=== PATIENT | female | born 1945 ===

== ENCOUNTER 2016-06-19 12:20 | Observation (INO) | payer MEDICARE, SELFPAY ==
--- NOTE | 2016-06-19 12:54 | ED PDOC ---
HPI: General Adult Time Seen by Provider: 06/19/16 12:49 Chief Complaint (Nursing): Medical Clearance Chief Complaint (Provider): EKG changes History Per: Patient History/Exam Limitations: no limitations Additional Complaint(s): 71yo female comes to the ED from clinic due to changes noted on EKG when compared to previous EKGs. Patient denies chest pain or pressure but states she feels "gas" in her chest. Past Medical History Reviewed: Historical Data, Nursing Documentation, Vital Signs Vital Signs: Last Vital Signs Temp 95.2 F L 06/19/16 12:37 Pulse 56 L 06/19/16 12:37 Resp 18 06/19/16 12:37 BP 191/73 H 06/19/16 12:37 Pulse Ox 99 06/19/16 13:12 - Medical History PMH: Diabetes, Gastritis, HTN - Surgical History Surgical History: No Surg Hx - Family History Family History: States: Diabetes, Hypertension - Living Arrangements Living Arrangements: With Family - Social History Drugs: Denies - Home Medications Home Medications: Ambulatory Orders Medication Instructions Recorded Albuterol HFA [Ventolin HFA 90 1 puff IH ASDIR #1 unit 04/20/16 mcg/actuation (8 g)] Azithromycin [Zithromax] 250 mg PO DAILY #6 tab 04/20/16 Benzonatate 200 mg PO TID PRN #20 capsule 04/20/16 Glipizide [Glipizide Xl] 10 mg PO DAILY 04/20/16 Losartan Potassium [Cozaar] 100 mg PO DAILY 04/20/16 Metformin ER [Glucophage XR] 1,000 mg PO BID 04/20/16 Zolpidem Tartrate [Ambien] 10 mg PO DAILY 04/20/16 - Allergies Allergies/Adverse Reactions: Allergies Allergy/AdvReac Type Severity Reaction Status Date / Time No Known Allergies Allergy Verified 04/20/16 15:12 Review of Systems ROS Statement: Except As Marked, All Systems Reviewed And Found Negative Cardiovascular: Negative for: Chest Pain Respiratory: Negative for: Shortness of Breath Physical Exam - Reviewed Nursing Documentation Reviewed: Yes Vital Signs Reviewed: Yes - Physical Exam Appears: Positive for: Well, Non-toxic, No Acute Distress Head Exam: Positive for: ATRAUMATIC, NORMAL INSPECTION, NORMOCEPHALIC Skin: Positive for: Warm, Dry Eye Exam: Positive for: EOMI, PERRL Cardiovascular/Chest: Positive for: Regular Rate, Rhythm Respiratory: Positive for: Normal Breath Sounds. Negative for: Rales, Rhonchi, Wheezing Extremity: Positive for: Normal ROM Neurologic/Psych: Positive for: Alert, Oriented (x3) - Laboratory Results Result Diagrams: 06/19/16 13:11 06/19/16 13:11 - ECG O2 Sat by Pulse Oximetry: 99 (RA) Pulse Ox Interpretation: Normal Medical Decision Making Medical Decision Makin EKG, labs ordered Disposition - Clinical Impression Clinical Impression: Chest pain - Patient ED Disposition Is Patient to be Admitted: Yes - Disposition Disposition Time: 14:18 Condition: FAIR - Pt Status Changed To: Hospital Disposition Of: Observation - POA Present On Arrival: None Additional Comments - Additional Comments Additional Comments: Scribe Attestation: Documented by Trey Sanchez acting as a scribe for Preston Schmidt MD. Provider Scribe Attestation: All medical record entries made by the Scribe were at my direction and personally dictated by me. I have reviewed the chart and agree that the record accurately reflects my personal performance of the history, physical exam, medical decision making, and the department course for this patient. I have also personally directed, reviewed, and agree with the discharge instructions and disposition.
[2016-06-19 13:37] LABS: BASO # 0.1 K/uL (0.0-0.2); BASO % 1.1 % (0.0-2.0); EOS # 0.3 K/uL (0.0-0.7); EOS % 5.4 % (0.0-4.0); HEMATOCRIT 34.1 % (34.0-47.0); LYMPH # 1.6 K/uL (1.0-4.3); LYMPH % 32.8 % (20.0-40.0); MEAN CELL VOLUME 86.2 fl (81.0-99.0); MEAN CORPUSCULAR HEMOGLOBIN 28.2 pg (27.0-31.0); MEAN CORPUSCULAR HGB CONC 32.7 g/dL (33.0-37.0); MEAN PLATELET VOLUME 8.3 fl (7.2-11.7); MONO # 0.4 K/uL (0.0-0.8); MONO % 7.8 % (0.0-10.0); NEUT # 2.6 K/uL (1.8-7.0); NEUT % 52.9 % (50.0-75.0); NRBC % 0.1 % (0.0-0.0); RED CELL DISTRIBUTION WIDTH 15.4 % (11.5-14.5); WHITE BLOOD COUNT 4.9 K/uL (4.8-10.8)
[2016-06-19 13:51] LABS: ALB/GLOB RATIO 1.2 (1.0-2.1); ALKALINE PHOSPHATASE 60 U/L (38-126); ALT/SGPT 19 U/L (9-52); AST/SGOT 21 U/L (14-36); BILIRUBIN,TOTAL 0.5 mg/dl (0.2-1.3); BLOOD UREA NITROGEN 27 mg/dl (7-17); CARBON DIOXIDE 23 mmol/L (22-30); CHLORIDE 107 mmol/L (98-107); GFR AFRICAN-AMERICAN > 60; GLUCOSE,RANDOM 90 mg/dL (65-105); SODIUM 147 mmol/l (132-148)
[2016-06-19 14:02] LABS: POTASSIUM 4.5 MMOL/L (3.6-5.0)
--- NOTE | 2016-06-19 15:27 | CP.PCM.HP ---
History of Present Illness - History of Present Illness History of Present Illness: 71 y/o female with a PMHx remarkable for NIDDM2, dyspepsia, HTN presents to ED today after being sent over from the [facility]. She was originally being seen in the clinic for optimization for cataract surgery when she complained of gas like epigastric pain. An EKG was performed in the clinic which showed peaked T- waves. She currently reports feeling alright with a minor epigastric pain and hungry. She has no other complaints. Denies headaches, changes in vision, diaphoresis, CP/SOB/ROQUE/palpitations, left arm/jaw, N/V/D/C, urinary symptoms, numbness/tingling. ROS: 12 points reviewed, found to be negative PMD: Dr. Lobo PMHx: NIDDM2, HTN, Sleep difficulty Meds: Metformin 1000 BID, Losartan 100 QD, Charmco-3 BID, Ferrous Sulfate 325mg, Aspirin 81mg, Ambien 10mg, Trazadone 50mg. ALL: NKDA PsurgHx: BTL, Benign Breast Cyst excision, Ear Surgery FHx: negative for CAD, [place], Stroke SocialHx: denies tobacco/drug use, reports occasional wine and whiskey consumption ED Course: Vitals on presentation: Temp: 95.2 BP: 191/73, HR: 56, RR: 18, O2: 99% on RA CBC: wnl CMP: BUN 27 Troponin I: 1st troponin negative EKG: sinus bradycardia, peaked t-waves Admitted to [facility] for observation Present on Admission - Present on Admission Any Indicators Present on Admission: No Review of Systems - Review of Systems All systems: reviewed and no additional remarkable complaints except Past Patient History - Past Medical History & Family History Past Medical History?: Yes - Past Social History Smoking Status: Never Smoked Alcohol: Occasional Drugs: Denies Home Situation {Lives}: With Family Domestic Violence: Negative - CARDIAC Hx Hypertension: Yes - ENDOCRINE/METABOLIC Hx Diabetes Mellitus Type 1: Yes - GASTROINTESTINAL Hx Gastritis: Yes - PSYCHIATRIC Hx Substance Use: No - SURGICAL HISTORY Hx Tubal Ligation: Yes Other/Comment: Left ear surgery. Bilateral breast cyst removal - ANESTHESIA Hx Anesthesia: Yes Hx Anesthesia Reactions: No Hx Malignant Hyperthermia: No Meds Allergies/Adverse Reactions: Allergies Allergy/AdvReac Type Severity Reaction Status Date / Time No Known Allergies Allergy Verified 04/20/16 15:12 Physical Exam - Constitutional Appears: Well, No Acute Distress - Head Exam Head Exam: ATRAUMATIC, NORMOCEPHALIC - Eye Exam Eye Exam: EOMI. absent: Conjunctival injection, Scleral icterus Pupil Exam: PERRL - ENT Exam ENT Exam: Mucous Membranes Moist, Normal Exam - Neck Exam Neck exam: Positive for: Normal Inspection - Respiratory Exam Respiratory Exam: Clear to Auscultation Bilateral, NORMAL BREATHING PATTERN. absent: Rales, Rhonchi, Wheezes - Cardiovascular Exam Cardiovascular Exam: REGULAR RHYTHM, RRR, +S1, +S2. absent: Clicks, Gallop, JVD , Rubs, Systolic Murmur - GI/Abdominal Exam GI & Abdominal Exam: Normal Bowel Sounds, Soft, Tenderness. absent: Distended, Firm, Guarding, Rebound Additional comments: minimal tenderness to palpation in the epigastric region. - Extremities Exam Extremities exam: Positive for: full ROM, normal inspection, pedal pulses present. Negative for: calf tenderness, pedal edema - Back Exam Back exam: NORMAL INSPECTION - Neurological Exam Neurological exam: Alert, CN II-XII Intact, Normal Gait, Oriented x3, Reflexes Normal - Psychiatric Exam Psychiatric exam: Normal Affect, Normal Mood - Skin Skin Exam: Dry, Intact, Normal Color, Warm Results - Vital Signs Recent Vital Signs: Last Vital Signs Temp 95.2 F L 06/19/16 12:37 Pulse 56 L 06/19/16 12:37 Resp 18 06/19/16 12:37 BP 191/73 H 06/19/16 12:37 Pulse Ox 99 06/19/16 14:18 - Labs Result Diagrams: 06/19/16 13:11 06/19/16 13:11 Assessment & Plan (1) Chest pain with low risk of acute coronary syndrome Assessment and Plan: -trend Troponins q8 hours -repeat 12 lead EKG in the morning -follow up BMP -resume home anti-hypertension medications -vitals Q4 -Heart healthy diet -admitted to Telemetry for Observation Status: Acute Priority: Medium (2) Non-insulin treated type 2 diabetes mellitus Assessment and Plan: -well controlled -HbA1C: 6.8% in November of 2015 -c/w home medication (Metformin 1000 BID) Status: Chronic Priority: Low (3) Essential (primary) hypertension Assessment and Plan: -well controlled -c/w home medications (Losartan 100mg, Aspirin 81mg) Status: Chronic Priority: Low (4) Dyspepsia Assessment and Plan: -Pepcid 20mg QD Status: Chronic Priority: Low (5) DVT prophylaxis Assessment and Plan: -Ambulation Status: Chronic Priority: Low
[2016-06-19] MEDS ORDERED: Dextrose 50% SYRINGE Inj (50 ml) IV PRN (15:47)
[2016-06-19] MEDS ORDERED: Glucagon Recombinant 1 mg Inj IM PRN (15:47)
[2016-06-19 18:52] VITALS: BMI 25.9
[2016-06-19] MEDS: Simethicone 80 mg Chewtab PO SCH ×2 (19:36→21:16)
[2016-06-20 00:18] VITALS: RESP 18
[2016-06-20 08:02] VITALS: TEMP 98
[2016-06-20] MEDS: Simethicone 80 mg Chewtab PO SCH ×2 (08:20→13:06)
[2016-06-20 12:30] VITALS: BP 125/56; PULSE 58; O2SAT 100
--- NOTE | 2016-06-20 12:38 | CP.PCM.DIS ---
Provider - Provider Date of Admission: 06/19/16 14:17 Attending physician: Katheryn Melchor MD Time Spent in preparation of Discharge (in minutes): 35 Diagnosis - Discharge Diagnosis (1) Chest pain with low risk of acute coronary syndrome Status: Acute Priority: Medium (2) Non-insulin treated type 2 diabetes mellitus Status: Chronic Priority: Low (3) Essential (primary) hypertension Status: Chronic Priority: Low (4) Dyspepsia Status: Chronic Priority: Low (5) DVT prophylaxis Status: Chronic Priority: Low Hospital Course - Lab Results Lab Results: Most Recent Lab Values WBC 4.9 K/uL (4.8-10.8) 06/19/16 13:11 RBC 3.96 Mil/uL (3.80-5.20) 06/19/16 13:11 Hgb 11.2 g/dL (12.0-16.0) L 06/19/16 13:11 Hct 34.1 % (34.0-47.0) 06/19/16 13:11 MCV 86.2 fl (81.0-99.0) 06/19/16 13:11 MCH 28.2 pg (27.0-31.0) 06/19/16 13:11 MCHC 32.7 g/dL (33.0-37.0) L 06/19/16 13:11 RDW 15.4 % (11.5-14.5) H 06/19/16 13:11 Plt Count 248 K/uL (130-400) 06/19/16 13:11 MPV 8.3 fl (7.2-11.7) 06/19/16 13:11 Neut % (Auto) 52.9 % (50.0-75.0) 06/19/16 13:11 Lymph % (Auto) 32.8 % (20.0-40.0) 06/19/16 13:11 [place] % (Auto) 7.8 % (0.0-10.0) 06/19/16 13:11 Eos % (Auto) 5.4 % (0.0-4.0) H 06/19/16 13:11 Baso % (Auto) 1.1 % (0.0-2.0) 06/19/16 13:11 Neut # 2.6 K/uL (1.8-7.0) 06/19/16 13:11 Lymph # 1.6 K/uL (1.0-4.3) 06/19/16 13:11 [place] # 0.4 K/uL (0.0-0.8) 06/19/16 13:11 Eos # 0.3 K/uL (0.0-0.7) 06/19/16 13:11 Baso # 0.1 K/uL (0.0-0.2) 06/19/16 13:11 Sodium 147 mmol/l (132-148) 06/19/16 13:11 Potassium 4.5 MMOL/L (3.6-5.0) 06/19/16 13:11 Chloride 107 mmol/L (98-107) 06/19/16 13:11 Carbon Dioxide 23 mmol/L (22-30) 06/19/16 13:11 Anion Gap 22 (10-20) H 06/19/16 13:11 BUN 27 mg/dl (7-17) H 06/19/16 13:11 Creatinine 0.9 mg/dL (0.7-1.2) 06/19/16 13:11 Est GFR ( Amer) > 60 06/19/16 13:11 Est GFR (Non-Af Amer) > 60 06/19/16 13:11 POC Glucose (mg/dL) 193 mg/dL (65-110) H 06/20/16 11:07 Random Glucose 90 mg/dL (65-105) 06/19/16 13:11 Calcium 10.0 mg/dL (8.4-10.2) 06/19/16 13:11 Total Bilirubin 0.5 mg/dl (0.2-1.3) 06/19/16 13:11 AST 21 U/L (14-36) 06/19/16 13:11 ALT 19 U/L (9-52) 06/19/16 13:11 Alkaline Phosphatase 60 U/L (38-126) 06/19/16 13:11 Troponin I < 0.0120 ng/mL (0.00-0.120) 06/20/16 05:25 Total Protein 8.0 G/DL (6.3-8.2) 06/19/16 13:11 Albumin 4.3 g/dL (3.5-5.0) 06/19/16 13:11 Globulin 3.7 gm/dL (2.2-3.9) 06/19/16 13:11 Albumin/Globulin Ratio 1.2 (1.0-2.1) 06/19/16 13:11 - Hospital Course Hospital Course: 71 y/o female with a PMHx remarkable for NIDDM2, dyspepsia, HTN presents to ED today after being sent over from the [facility]. She was originally being seen in the clinic for optimization for cataract surgery when she complained of gas like epigastric pain. An EKG was performed in the clinic which showed peaked T- waves. She presented to the ED where she was admitted for observation. Follow up EKG and Troponins were ordered. All tests were negative. After an uneventful hospital stay, the patient was discharged in stable condition with orders to follow up with her PMD later this week. Discharge Exam - Head Exam Head Exam: ATRAUMATIC, NORMOCEPHALIC - Eye Exam Eye Exam: EOMI. absent: Conjunctival injection, Scleral icterus Pupil Exam: PERRL - Respiratory Exam Respiratory Exam: Clear to PA & Lateral, NORMAL BREATHING PATTERN, UNREMARKABLE. absent: Accessory Muscle Use, Rales, Wheezes, Respiratory Distress - Cardiovascular Exam Cardiovascular Exam: Bradycardia, REGULAR RHYTHM, RRR, +S1, +S2. absent: Tachycardia, Clicks, Diastolic murmur, Gallop, JVD, Rubs, Systolic Murmur - GI/Abdominal Exam GI & Abdominal Exam: Normal Bowel Sounds, Soft, Unremarkable. absent: Diminished Bowel Sounds, Distended, Firm, Guarding, Hernia, Tenderness - Extremities Exam Extremities exam: full ROM, normal capillary refill, normal inspection, pedal pulses present - Neurological Exam Neurological exam: Alert, CN II-XII Intact, Normal Gait, Oriented x3 - Psychiatric Exam Psychiatric exam: Normal Affect, Normal Mood - Skin Skin Exam: Dry, Intact, Normal Color, Warm Discharge Plan - Follow Up Plan Condition: STABLE Disposition: HOME/ ROUTINE Instructions: Chest Pain (DC), Bradycardia (DC) Additional Instructions: follow up with your PMD in 2-3 days any worsening chest pain, palpitations, associated with diaphoresis, nausea, vomiting report back to the ER.
--- NOTE | 2016-06-21 11:49 | CARD ---
APPROVED REPORT EKG Measurement Heart [id number] <Conclusion> Sinus bradycardia Otherwise normal ECG
== END 2016-06-20 14:10 | disposition home or self-care (01) ==
LOC: H.ER 12:20 → H.ERHOLD 14:17 → H.TEL 18:25
PROVIDERS: ADMIT Family Medicine Geriatric Medicine; ATTEND Family Medicine Geriatric Medicine
DX: R07.89 Other chest pain (principal); R10.13 Epigastric pain; E11.9 Type 2 diabetes mellitus without complications; I10 Essential (primary) hypertension; Z79.4 Long term (current) use of insulin
CPT/HCPCS: 36415; 80053; 82948; 84484; 85025; 93005; 99285; G0378

== ENCOUNTER 2016-09-27 10:00 | Emergency (ER) | payer MEDICARE, OTHER ==
[2016-09-27 10:00] VITALS: BMI 25.9
--- NOTE | 2016-09-27 11:26 | ED PDOC ---
HPI: Abdomen Time Seen by Provider: 09/27/16 11:26 Chief Complaint (Nursing): GI Problem Chief Complaint (Provider): abdominal pain History Per: Patient Additional Complaint(s): 71-year-old female presents to emergency department with epigastric abdominal pain associated with vomiting and acid reflux symptoms 1 week. She was seen last week by primary doctor and was taken off omeprazole and was advised to take Zantac instead. She was then referred to planting supervisor who told her to take Pepcid instead but pepcid is not helping with reflux symptoms. She is currently awaiting insurance approval for an endoscopy and presents today with persistent vomiting and pain. She denies ssociated fever or chills, no chest pain, shortness of breath or dyspnea on exertion. Patient rates current abdominal pain as a 6 out of 10. Past Medical History Reviewed: Historical Data, Nursing Documentation, Vital Signs Vital Signs: Last Vital Signs Temp 97.8 F 09/27/16 15:50 Pulse 53 L 09/27/16 15:50 Resp 18 09/27/16 15:50 BP 172/74 H 09/27/16 15:50 Pulse Ox 99 09/27/16 15:50 - Medical History PMH: Diabetes, Gastritis, HTN - Surgical History Other surgeries: left ear surgery, cyst removal from right breast - Family History Family History: States: Diabetes, Hypertension - Living Arrangements Living Arrangements: With Family - Social History Current smoker - smoking cessation education provided: No Alcohol: None Drugs: Denies - Home Medications Home Medications: Ambulatory Orders Medication Instructions Recorded Losartan Potassium [Cozaar] 100 mg PO DAILY 04/20/16 Zolpidem Tartrate [Ambien] 10 mg PO HS 04/20/16 Aspirin [Ecotrin] 81 mg PO DAILY 06/19/16 Ferrous Sulfate [Ferosul] 325 mg PO DAILY 06/19/16 MetFORMIN [glucoPHAGE] 1,000 mg PO BID 06/19/16 [place]-3 Fatty Acids [[place]-3] 1 gm PO BID 06/19/16 traZODone [Desyrel] 50 mg PO HS 06/19/16 Ondansetron [Zofran Odt] 4 mg PO ASDIR PRN #10 odt 09/27/16 Pantoprazole [Protonix] 40 mg PO DAILY #30 tab 09/27/16 - Allergies Allergies/Adverse Reactions: Allergies Allergy/AdvReac Type Severity Reaction Status Date / Time No Known Allergies Allergy Verified 04/20/16 15:12 Review of Systems ROS Statement: Except As Marked, All Systems Reviewed And Found Negative Constitutional: Negative for: Fever Cardiovascular: Negative for: Chest Pain Respiratory: Negative for: Cough Gastrointestinal: Positive for: Nausea, Vomiting, Abdominal Pain. Negative for : Diarrhea, Constipation, Melena, Hematochezia, Hematemesis, Rectal Pain Physical Exam - Reviewed Nursing Documentation Reviewed: Yes Vital Signs Reviewed: Yes - Physical Exam Appears: Positive for: Well, Non-toxic, No Acute Distress Skin: Negative for: Rash Eye Exam: Positive for: Normal appearance, EOMI, PERRL Cardiovascular/Chest: Positive for: Regular Rate, Rhythm Respiratory: Positive for: Normal Breath Sounds Gastrointestinal/Abdominal: Positive for: Bowel Sounds (normoactive in all 4 quadrants), Soft, Tenderness (epigastric region). Negative for: Distended, Guarding, Rebound, Hernia Back: Negative for: L CVA Tenderness, R CVA Tenderness Extremity: Positive for: Normal ROM. Negative for: Pedal Edema Neurologic/Psych: Positive for: Alert, Oriented - Laboratory Results Result Diagrams: 09/27/16 12:58 09/27/16 12:58 - ECG Interpretation Of ECG: Sinus bradycardia 53 bpm, no acute finding, reviewed by PA and ED attending. O2 Sat by Pulse Oximetry: 98 Pulse Ox Interpretation: Normal - Other Rad Abd US X-Ray: Read By Radiologist X-Ray Interpretation: see below Bedside chest X-Ray: Interpreted by Me, Viewed By Me X-Ray Interpretation: no acute finding Medical Decision Making Medical Decision Makin71 year old with abdominal pain Plan: CBC CMP Lipase UA EKG bedside chest Abd US IVF IV zofran PO maalox US: LIVER: Measures 13.5 cm. Normal echogenicity of the liver parenchyma. No mass. No intrahepatic bile duct dilatation. GALLBLADDER: Nearly completely contracted with wall difficult to evaluate. Interval mural thickening is now likely present and acalculous cholecystitis is in question. No pericholecystic fluid collection however or cholelithiasis. COMMON BILE DUCT: Measures 4.7 mm. No stones. No dilatation. PANCREAS: The body of pancreas appears unremarkable the remainder obscured by overlying bowel gas. RIGHT KIDNEY: Measures 8.9cm. Normal echogenicity. No calculus, mass, or hydronephrosis. LEFT KIDNEY: easures 7.6cm. Normal echogenicity. No calculus, mass, or hydronephrosis. SPLEEN: Normal in size and contour. No mass. AORTA: No aneurysmal dilatation. IVC: Unremarkable. OTHER FINDINGS: None. IMPRESSION: Gallbladder is nearly completely contracted however its wall appears greater in thickness thickness in the interval than would be expected simply on the basis of contraction an acalculous cholecystitis is questioned. Further clinical correlation is advised. No biliary tree dilatation is grossly evident at this time. Portions of the pancreas appreciated with remainder the examination unremarkable. Patient feels better. Upon repeat examination, abdominal exam is benign. Patient was able to tolerate juiceand food tray without further emesis. PMD is Dr. Rodriguez from [place]. Case was discussed with Memo Santoyo who states to have patient follow up in office tomorrow. Patient was given rx protonix and zofran and she was also given copy of official US report. She was advised take report with her to PMD appointment in AM. Disposition - Clinical Impression Clinical Impression: Gastritis, Abdominal pain - Patient ED Disposition Is Patient to be Admitted: No Counseled Patient/Family Regarding: Studies Performed, Diagnosis, Need For Followup, Rx Given - Disposition Referrals: Prem Rodriguez MD [Family Provider] - Disposition: Routine/Home Disposition Time: 17:03 Condition: IMPROVED Additional Instructions: Take rx meds as directed. Follow dietary instructions. Follow up tomorrow with primary care doctor office. Prescriptions: Ondansetron [Zofran Odt] 4 mg PO ASDIR PRN #10 odt PRN Reason: Nausea/Vomiting Pantoprazole [Protonix] 40 mg PO DAILY #30 tab Instructions: Gastritis (ED), Diet for Ulcers and Gastritis (ED) Forms: Trov (Tamazight), Trov (Portuguese) Print Language: MONGOLIAN Results - Lab Results Lab Results: 09/27/16 09/27/16 12:58 12:58 WBC 5.0 RBC 4.03 Hgb 11.1 L Hct 34.7 MCV 86.2 MCH 27.6 MCHC 32.0 L RDW 14.4 Plt Count 233 MPV 8.3 Neut % (Auto) 64.2 Lymph % (Auto) 25.0 [place] % (Auto) 6.9 Eos % (Auto) 3.2 Baso % (Auto) 0.7 Neut # 3.2 Lymph # 1.2 [place] # 0.3 Eos # 0.2 Baso # 0.0 Sodium 140 Potassium 4.8 Chloride 108 H Carbon Dioxide 21 L Anion Gap 16 BUN 27 H Creatinine 1.0 Est GFR ( Amer) > 60 Est GFR (Non-Af Amer) 55 Random Glucose 99 Calcium 9.9 Total Bilirubin 0.5 AST 28 ALT 20 Alkaline Phosphatase 48 Total Protein 7.9 Albumin 4.4 Globulin 3.4 Albumin/Globulin Ratio 1.3 Lipase 81
[2016-09-27] MEDS ORDERED: Pantoprazole 40 mg EC Tab PO STA (11:38)
[2016-09-27] MEDS ORDERED: Sodium Chloride 0.9% 1,000 ML IV STA (11:39)
--- NOTE | 2016-09-27 12:13 | RAD ---
HISTORY: clearance COMPARISON: Comparison chest 04/20/2016 FINDINGS: LUNGS: No active pulmonary disease. PLEURA: No significant pleural effusion identified, no pneumothorax apparent. CARDIOVASCULAR: Normal. OSSEOUS STRUCTURES: Mild multilevel degenerative changes both shoulder girdles. . There is also mild dextroscoliosis centered in the lower thoracic region VISUALIZED UPPER ABDOMEN: Normal. OTHER FINDINGS: None. IMPRESSION: No acute infiltrates.
[2016-09-27] MEDS ORDERED: Pantoprazole 40 mg EC Tab PO ONE (12:15)
[2016-09-27 13:49] LABS: CHLORIDE 108 mmol/L (98-107); POTASSIUM 4.8 MMOL/L (3.6-5.0); SODIUM 140 mmol/l (132-148)
[2016-09-27 13:51] LABS: BILIRUBIN,TOTAL 0.5 mg/dl (0.2-1.3); CARBON DIOXIDE 21 mmol/L (22-30); GFR AFRICAN-AMERICAN > 60
[2016-09-27 13:52] LABS: ALB/GLOB RATIO 1.3 (1.0-2.1); ALKALINE PHOSPHATASE 48 U/L (38-126); ALT/SGPT 20 U/L (9-52); AST/SGOT 28 U/L (14-36); BLOOD UREA NITROGEN 27 mg/dl (7-17); CALCIUM 9.9 mg/dL (8.4-10.2); GLUCOSE,RANDOM 99 mg/dL (65-105); LIPASE 81 U/L (23-300); TOTAL PROTEIN 7.9 G/DL (6.3-8.2)
[2016-09-27 14:38] LABS: BASO % 0.7 % (0.0-2.0); EOS # 0.2 K/uL (0.0-0.7); EOS % 3.2 % (0.0-4.0); HEMATOCRIT 34.7 % (34.0-47.0); LYMPH # 1.2 K/uL (1.0-4.3); MEAN CELL VOLUME 86.2 fl (81.0-99.0); MEAN CORPUSCULAR HEMOGLOBIN 27.6 pg (27.0-31.0); MEAN PLATELET VOLUME 8.3 fl (7.2-11.7); MONO # 0.3 K/uL (0.0-0.8); MONO % 6.9 % (0.0-10.0); NEUT # 3.2 K/uL (1.8-7.0); NEUT % 64.2 % (50.0-75.0); NRBC % 0.2 % (0.0-0.0); RED CELL DISTRIBUTION WIDTH 14.4 % (11.5-14.5)
--- NOTE | 2016-09-27 16:21 | US ---
HISTORY: epigastric/upper abd pain COMPARISON: Prior limited abdomen ultrasound dated 02/18/2016. TECHNIQUE: Sonographic evaluation of the abdomen. FINDINGS: LIVER: Measures 13.5 cm. Normal echogenicity of the liver parenchyma. No mass. No intrahepatic bile duct dilatation. GALLBLADDER: Nearly completely contracted with wall difficult to evaluate. Interval mural thickening is now likely present and acalculous cholecystitis is in question. No pericholecystic fluid collection however or cholelithiasis. COMMON BILE DUCT: Measures 4.7 mm. No stones. No dilatation. PANCREAS: The body of pancreas appears unremarkable the remainder obscured by overlying bowel gas. RIGHT KIDNEY: Measures 8.9cm. Normal echogenicity. No calculus, mass, or hydronephrosis. LEFT KIDNEY: Measures 7.6cm. Normal echogenicity. No calculus, mass, or hydronephrosis. SPLEEN: Normal in size and contour. No mass. AORTA: No aneurysmal dilatation. IVC: Unremarkable. OTHER FINDINGS: None. IMPRESSION: Gallbladder is nearly completely contracted however its wall appears greater in thickness thickness in the interval than would be expected simply on the basis of contraction an acalculous cholecystitis is questioned. Further clinical correlation is advised. No biliary tree dilatation is grossly evident at this time. Portions of the pancreas appreciated with remainder the examination unremarkable.
[2016-09-27 17:29] VITALS: BP 135/79; PULSE 75; RESP 14; TEMP 97.9; O2SAT 100
--- NOTE | 2016-09-28 10:34 | CARD ---
APPROVED REPORT EKG Measurement Heart [id number] <Conclusion> Sinus bradycardia Possible Left atrial enlargement Borderline ECG
== END 2016-09-27 17:29 | disposition home or self-care (01) ==
LOC: H.ER 10:00
DX: K29.70 Gastritis, unspecified, without bleeding (principal); R10.13 Epigastric pain; E11.9 Type 2 diabetes mellitus without complications; I10 Essential (primary) hypertension; Z79.84 Long term (current) use of oral hypoglycemic drugs; Z79.82 Long term (current) use of aspirin
CPT/HCPCS: 71010; 76700; 80053; 83690; 85025; 93005; 96374; 99283; J2405; J7040

== ENCOUNTER 2017-09-22 20:46 | Inpatient (IN) | payer MEDICARE ==
[2017-09-22 20:46] VITALS: BMI 25.9
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
[2017-09-22 21:33] LABS: EOS # 0.3 K/uL (0.0-0.7); EOS % 6.2 % (0.0-4.0); HEMOGLOBIN 11.5 g/dL (12.0-16.0); LYMPH # 1.2 K/uL (1.0-4.3); LYMPH % 24.8 % (20.0-40.0); MEAN CELL VOLUME 84.7 fl (81.0-99.0); MEAN CORPUSCULAR HEMOGLOBIN 28.4 pg (27.0-31.0); MEAN CORPUSCULAR HGB CONC 33.5 g/dL (33.0-37.0); MEAN PLATELET VOLUME 8.1 fl (7.2-11.7); MONO # 0.3 K/uL (0.0-0.8); MONO % 7.2 % (0.0-10.0); NEUT # 2.9 K/uL (1.8-7.0); NEUT % 60.8 % (50.0-75.0); NRBC % 0.1 % (0.0-0.0); RBC 4.03 Mil/uL (3.80-5.20); WHITE BLOOD COUNT 4.7 K/uL (4.8-10.8)
[2017-09-22] MEDS ORDERED: Sodium Chloride 0.9% 1,000 ML IV SCH (21:45)
[2017-09-22 21:56] LABS: CALCIUM 9.8 mg/dL (8.4-10.2)
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
[2017-09-22 22:07] LABS: TROPONIN I 0.028 ng/mL (0.00-0.120)
[2017-09-22 23:00] LABS: INR 0.9 (0.9-1.2); PARTIAL THROMBOPLASTIN TIME 35.9 Seconds (25.6-37.1); PROTHROMBIN TIME 10.4 Seconds (9.8-13.1)
[2017-09-22] MEDS ORDERED: Dextrose 50% SYRINGE Inj (50 ml) IV PRN (23:51)
[2017-09-22] MEDS ORDERED: Glucagon Recombinant 1 mg Inj IM PRN (23:51)
[2017-09-23] MEDS: Insulin Regular 100 units/ml SC SCH ×4 (07:14→21:45)
--- NOTE | 2017-09-23 08:19 | CP.PCM.PN ---
Subjective - Date & Time of Evaluation Date of Evaluation: 09/23/17 Time of Evaluation: 08:10 - Subjective Subjective: Pt is lying down and comfortable with no acute distress. no acute event overnight. Pt had no complain. She fever, headache, chest pain, SOB, abdominal pain, diarrhea, constipation, dysuria, or polyuria at this moment. On today lab Troponin was positive, EKG was done it was NSR with bradycardia. Objective - Vital Signs/Intake and Output Vital Signs (last 24 hours): Temp Pulse Resp BP Pulse Ox 98.4 F 51 L 20 154/52 H 100 09/23/17 08:00 09/23/17 08:00 09/23/17 08:00 09/23/17 08:00 09/23/17 08:00 - Medications Medications: Current Medications Acetaminophen (Tylenol 325mg Tab) 650 mg PO Q6 PRN PRN Reason: Pain, Mild (1-3) Aspirin (Ecotrin) 81 mg PO DAILY [facility] Dextrose (Dextrose 50% Inj) 0 ml IV STAT PRN; Protocol PRN Reason: Hypoglycemia Protocol Dextrose (Glutose 15) 0 gm PO ONCE PRN; Protocol PRN Reason: Hypoglycemia Protocol Enoxaparin Sodium (Lovenox) 30 mg SC DAILY JULIET PRN Reason: Protocol Ferrous Sulfate (Feosol) 325 mg PO DAILY JULIET Glipizide (Glucotrol Xl) 5 mg PO DAILY JULIET Glucagon (Glucagen Diagnostic Kit) 0 mg IM STAT PRN; Protocol PRN Reason: Hypoglycemia Protocol Sodium Chloride (Sodium Chloride 0.9%) 1,000 mls @ 999 mls/hr IV .Q1H1M [facility] Stop: 09/23/17 21:38 Last Admin: 09/22/17 21:46 Dose: 999 mls/hr Insulin Human Regular (Humulin R) 0 units SC ACHS JULIET PRN Reason: Protocol Last Admin: 09/23/17 07:14 Dose: Not Given Losartan Potassium (Cozaar) 100 mg PO DAILY [facility] Metformin HCl (Glucophage) 500 mg PO BID JULIET [id number] Ethyl Esters (Lovaza) 1 gm PO BID JULIET Pantoprazole Sodium (Protonix Ec Tab) 40 mg PO ONCE ONE Stop: 09/23/17 21:38 Pantoprazole Sodium (Protonix Ec Tab) 40 mg PO DAILY JULIET Trazodone HCl (Desyrel) 50 mg PO HS [facility] Last Admin: 09/23/17 02:07 Dose: 50 mg Zolpidem Tartrate (Ambien) 10 mg PO [facility] Last Admin: 09/23/17 02:07 Dose: 10 mg - Labs Labs: 09/22/17 21:18 09/22/17 21:40 PT 10.4 Seconds (9.8-13.1) 09/22/17 21:30 INR 0.9 (0.9-1.2) 09/22/17 21:30 APTT 35.9 Seconds (25.6-37.1) 09/22/17 21:30 - Constitutional Appears: Well, Non-toxic, No Acute Distress - Head Exam Head Exam: ATRAUMATIC, NORMAL INSPECTION, NORMOCEPHALIC - Eye Exam Eye Exam: EOMI, Normal appearance, PERRL Pupil Exam: NORMAL ACCOMODATION, PERRL - ENT Exam ENT Exam: Mucous Membranes Moist, Normal Exam - Neck Exam Neck Exam: Full ROM, Normal Inspection. absent: Tenderness - Respiratory Exam Respiratory Exam: Clear to Ausculation Bilateral, NORMAL BREATHING PATTERN. absent: Accessory Muscle Use, Chest Wall Tenderness, Rales, Rhonchi, Wheezes - Cardiovascular Exam Cardiovascular Exam: REGULAR RHYTHM, +S1, +S2 - GI/Abdominal Exam GI & Abdominal Exam: Soft, Normal Bowel Sounds. absent: Tenderness - Extremities Exam Extremities Exam: Full ROM, Normal Capillary Refill, Normal Inspection - Back Exam Back Exam: NORMAL INSPECTION. absent: CVA tenderness (L), CVA tenderness (R) - Neurological Exam Neurological Exam: Alert, Awake, Oriented x3 Assessment and Plan - Assessment and Plan (Free Text) Assessment: 70 yo fm with pMH of HTN, HLD, gastritis and NIDDM was admitted for CP with non- specific ekg changes, r/o ACS. Chest pain No pain at the moment, no tenderness Evaluate for NSTMI EKG sig for flattening of T waves in lead I and T wave inversion in lead aVL ( when compared to ekg 09/28/16), rate of 77 Trop x 1 neg Trop x2 is POSITIVE EKG NSR with bradycardia Start ACS protocol: aspirin, atorvastatin, Clopidogrel, Levonox, losaratan, repeat EKG, Troponin Q8H nitrate not given due no pain Consult Cardiology F/U trop F/U D-Dimer HTN Still elevated continue Home medication Cont to monitor NIDDM Insulin was not given today due to Blood glucose was low at night well controlled last HbA1c 6.7 (07/2017 in [facility]) Metformin adjusted Continue Home med Low dose insulin correction hypoglycemia protocol CKD, stage IIIB Chronic Renal dose meds as needed Gastritis Continue Home PPI Insomnia Cont home meds DVT -Lovenox SC Full Code
[2017-09-23] MEDS: Pantoprazole 40 mg EC Tab PO SCH (08:24)
[2017-09-23] MEDS ORDERED: GlipiZIDE 5 mg SR Tab PO SCH (09:00)
[2017-09-23] MEDS ORDERED: Enoxaparin 30 mg Syringe SC SCH (09:00)
[2017-09-23] MEDS ORDERED: Omega-3-Acid Ethyl Esters 1 GM Cap PO SCH (09:00)
[2017-09-23] MEDS: Sodium Chloride 0.9% 1,000 ML IV SCH (12:04)
--- NOTE | 2017-09-23 12:26 | RAD ---
Date of service: 09/22/2017 HISTORY: chest pain COMPARISON: 09/27/2016 TECHNIQUE: Chest PA and lateral FINDINGS: LUNGS: No active pulmonary disease. PLEURA: No significant pleural effusion identified. No pneumothorax apparent. CARDIOVASCULAR: Normal. OSSEOUS STRUCTURES: No significant abnormalities. VISUALIZED UPPER ABDOMEN: Normal. OTHER FINDINGS: None. IMPRESSION: No active disease.
--- NOTE | 2017-09-23 13:49 | CARD ---
APPROVED REPORT Date of service: 09/23/2017 EKG Measurement Heart [id number] <Conclusion> Sinus bradycardia Otherwise normal ECG
--- NOTE | 2017-09-23 13:54 | CARD ---
APPROVED REPORT Date of service: 09/22/2017 EKG Measurement Heart [id number] <Conclusion> Normal sinus rhythm Possible Left atrial enlargement Voltage criteria for Left ventriciuar hypertrophy Nonspecific ST and T wave abnormality Abnormal ECG
[2017-09-23] MEDS: Enoxaparin 60 mg Syringe SC SCH (21:26)
[2017-09-23] MEDS ORDERED: Pantoprazole 40 mg EC Tab PO ONE (21:37)
[2017-09-24] MEDS: Sodium Chloride 0.9% 1,000 ML IV SCH ×2 (00:57→09:26)
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
[2017-09-24 05:39] LABS: HEMOGLOBIN 10.3 g/dL (12.0-16.0); MEAN CELL VOLUME 85.8 fl (81.0-99.0); MEAN CORPUSCULAR HEMOGLOBIN 28.2 pg (27.0-31.0); MEAN CORPUSCULAR HGB CONC 32.9 g/dL (33.0-37.0); RBC 3.65 Mil/uL (3.80-5.20); RED CELL DISTRIBUTION WIDTH 14.3 % (11.5-14.5); WHITE BLOOD COUNT 4.8 K/uL (4.8-10.8)
[2017-09-24 06:11] LABS: CALCIUM 8.8 mg/dL (8.4-10.2)
--- NOTE | 2017-09-24 06:59 | CP.PCM.PN ---
Subjective - Date & Time of Evaluation Date of Evaluation: 09/24/17 Time of Evaluation: 07:00 - Subjective Subjective: Pt is seen and examined at bed side. No acute event over night. Pt have no complain, Pt state she walked all around the floor yesterday and had no SOB or chest pain. She denies dizziness, headache, abd pain, diarrhea, constipation, poluria, dysuria. Objective - Vital Signs/Intake and Output Vital Signs (last 24 hours): Temp Pulse Resp BP Pulse Ox 98.3 F 50 L 16 156/61 H 100 09/24/17 05:00 09/24/17 05:00 09/24/17 05:00 09/24/17 05:00 09/24/17 05:00 - Medications Medications: Current Medications Acetaminophen (Tylenol 325mg Tab) 650 mg PO Q6 PRN PRN Reason: Pain, Mild (1-3) Aspirin (Ecotrin) 81 mg PO DAILY [facility] Last Admin: 09/23/17 08:23 Dose: 81 mg Atorvastatin Calcium (Lipitor) 40 mg PO DAILY [facility] Last Admin: 09/23/17 10:24 Dose: 40 mg Clopidogrel Bisulfate (Plavix) 75 mg PO DAILY [facility] Last Admin: 09/23/17 10:24 Dose: 75 mg Dextrose (Dextrose 50% Inj) 0 ml IV STAT PRN; Protocol PRN Reason: Hypoglycemia Protocol Dextrose (Glutose 15) 0 gm PO ONCE PRN; Protocol PRN Reason: Hypoglycemia Protocol Enoxaparin Sodium (Lovenox) 60 mg SC DAILY [facility] PRN Reason: Protocol Last Admin: 09/23/17 21:26 Dose: 60 mg Ferrous Sulfate (Feosol) 325 mg PO DAILY [facility] Last Admin: 09/23/17 08:23 Dose: 325 mg Glipizide (Glucotrol Xl) 5 mg PO DAILY [facility] Last Admin: 09/23/17 08:24 Dose: 5 mg Glucagon (Glucagen Diagnostic Kit) 0 mg IM STAT PRN; Protocol PRN Reason: Hypoglycemia Protocol Sodium Chloride (Sodium Chloride 0.9%) 1,000 mls @ 90 mls/hr IV .Q11H7M [facility] Stop: 09/24/17 11:18 Last Admin: 09/24/17 00:57 Dose: 90 mls/hr Insulin Human Regular (Humulin R) 0 units SC ACHS [facility] PRN Reason: Protocol Last Admin: 09/23/17 21:45 Dose: Not Given Losartan Potassium (Cozaar) 100 mg PO DAILY [facility] Last Admin: 09/23/17 08:24 Dose: 100 mg Metformin HCl (Glucophage) 500 mg PO BID [facility] Last Admin: 09/23/17 18:02 Dose: 500 mg Pantoprazole Sodium (Protonix Ec Tab) 40 mg PO DAILY [facility] Last Admin: 09/23/17 08:24 Dose: 40 mg Trazodone HCl (Desyrel) 50 mg PO [facility] Last Admin: 09/23/17 21:31 Dose: 50 mg Zolpidem Tartrate (Ambien) 10 mg PO [facility] Last Admin: 09/23/17 22:55 Dose: 10 mg - Labs Labs: 09/24/17 05:26 09/24/17 05:26 PT 10.4 Seconds (9.8-13.1) 09/22/17 21:30 INR 0.9 (0.9-1.2) 09/22/17 21:30 APTT 35.9 Seconds (25.6-37.1) 09/22/17 21:30 - Constitutional Appears: Well, Non-toxic, No Acute Distress - Head Exam Head Exam: ATRAUMATIC, NORMAL INSPECTION, NORMOCEPHALIC - Eye Exam Eye Exam: EOMI, Normal appearance, PERRL Pupil Exam: NORMAL ACCOMODATION, PERRL - ENT Exam ENT Exam: Mucous Membranes Moist, Normal Exam - Neck Exam Neck Exam: Full ROM, Normal Inspection - Respiratory Exam Respiratory Exam: Clear to Ausculation Bilateral, NORMAL BREATHING PATTERN. absent: Chest Wall Tenderness, Decreased Breath Sounds - Cardiovascular Exam Cardiovascular Exam: REGULAR RHYTHM, +S1, +S2 - GI/Abdominal Exam GI & Abdominal Exam: Soft, Normal Bowel Sounds. absent: Tenderness - Extremities Exam Extremities Exam: Full ROM, Normal Capillary Refill, Normal Inspection. absent : Calf Tenderness - Back Exam Back Exam: NORMAL INSPECTION. absent: CVA tenderness (L), CVA tenderness (R) - Neurological Exam Neurological Exam: Alert, Awake, Oriented x3 - Psychiatric Exam Psychiatric exam: Normal Affect, Normal Mood - Skin Skin Exam: Dry, Intact, Normal Color, Warm Assessment and Plan - Assessment and Plan (Free Text) Assessment: Assessment: 70 yo fm with pMH of HTN, HLD, gastritis and NIDDM was admitted for CP with non- specific ekg changes, to evaluate for ACS. Chest pain No pain at the moment, no tenderness Evaluate for NSTMI First EKG sig for flattening of T waves in lead I and T wave inversion in lead aVL (when compared to ekg 09/28/16), rate of 77 Sec EKG NSR with bradycardia Trop x 1 neg Trop x2 is POSITIVE Trop x3 trending down but positive D-Dimer WNL Continue aspirin, atorvastatin, Clopidogrel, Levonox, losaratan, repeat EKG, Troponin Q8H Cardiology F/U Most likely cath tomorrow HTN Still elevated continue Home medication Cont to monitor NIDDM Insulin was not given well controlled last HbA1c 6.7 (07/2017 in ecw) Metformin is decrease to 500 BID due to low GFR Continue Home med Low dose insulin correction on hold hypoglycemia protocol CKD, stage IIIB Chronic Renal dose meds as needed Gastritis Continue Home PPI Insomnia Cont home meds DVT -Lovenox SC Full Code
[2017-09-24] MEDS: Insulin Regular 100 units/ml SC SCH ×4 (07:30→21:36)
[2017-09-24] MEDS: Enoxaparin 60 mg Syringe SC SCH (09:24)
[2017-09-24] MEDS: Pantoprazole 40 mg EC Tab PO SCH (09:25)
--- NOTE | 2017-09-24 21:36 | PN ---
DATE: 09/24/2017 FOLLOWUP SUBJECTIVE: The patient denies any chest pain or shortness of breath. PHYSICAL EXAMINATION: VITAL SIGNS: Blood pressure 157/66, heart rate 52, temperature 97.8, respirations 18. HEENT: Normocephalic. NECK: No JVD. CHEST: Clear. HEART: S1 and S2 are regular. ABDOMEN: Soft. EXTREMITIES: No edema. LABORATORY DATA: Today's SMA-7 is within normal limit except for chloride of 109 and BUN of 24. Today's hemoglobin and hematocrit 10.3 and 31.3, white count and platelet count are within normal limit. The latest troponin yesterday was 0.349. ASSESSMENT: 1. Chest pain. Consider [id number] myocardial infarction. 2. Hypertension and diabetes mellitus. 3. Mild pulmonary hypertension. RECOMMENDATIONS: Continue current Cozaar 100 mg once a day, aspirin 81 mg once a day, glipizide 5 mg once a day, Lipitor at 75 mg once a day, therapeutic subcutaneous Lovenox at 60 mg once a day. Cardiac catheterization was discussed with the patient and her son at the bedside via a control panel builder who happened to be the SOUND CUTTER. The procedure and its risks were fully explained to the patient. The patient agreed and the patient is scheduled for cardiac catheterization tomorrow at [facility]. Brandon Blandon MD
[2017-09-25] MEDS: Insulin Regular 100 units/ml SC SCH ×3 (06:29→22:03)
--- NOTE | 2017-09-25 07:25 | CP.PCM.PN ---
Subjective - Date & Time of Evaluation Date of Evaluation: 09/25/17 Time of Evaluation: 07:00 - Subjective Subjective: Pt is seen and examined at bed site. Pt was getting ready to go to [facility] for the Cath. She was anxious due to the procedure, she didnt want to do it, but her son convinced her that she needs it. Other then that pt had no acute episode overnight. Pt is have no other complain as per today. Pt denies fever chills, SOB, Chest pain, abd pain, diarrhea, constipation or any other symptoms. Objective - Vital Signs/Intake and Output Vital Signs (last 24 hours): Temp Pulse Resp BP Pulse Ox 98.4 F 51 L 18 186/61 H 99 09/25/17 04:51 09/25/17 04:51 09/25/17 04:51 09/25/17 04:51 09/25/17 04:51 - Medications Medications: Current Medications Acetaminophen (Tylenol 325mg Tab) 650 mg PO Q6 PRN PRN Reason: Pain, Mild (1-3) Aspirin (Ecotrin) 81 mg PO DAILY [facility] Last Admin: 09/24/17 09:22 Dose: 81 mg Atorvastatin Calcium (Lipitor) 40 mg PO DAILY [facility] Last Admin: 09/24/17 09:24 Dose: 40 mg Clopidogrel Bisulfate (Plavix) 75 mg PO DAILY [facility] Last Admin: 09/24/17 09:24 Dose: 75 mg Cyanocobalamin (Vitamin B12 1000 Mcg Tab) 1,000 mcg PO DAILY [facility] Last Admin: 09/24/17 13:17 Dose: 1,000 mcg Dextrose (Dextrose 50% Inj) 0 ml IV STAT PRN; Protocol PRN Reason: Hypoglycemia Protocol Dextrose (Glutose 15) 0 gm PO ONCE PRN; Protocol PRN Reason: Hypoglycemia Protocol Ferrous Sulfate (Feosol) 325 mg PO DAILY [facility] Last Admin: 09/24/17 09:22 Dose: 325 mg Glipizide (Glucotrol Xl) 5 mg PO DAILY [facility] Last Admin: 09/23/17 08:24 Dose: 5 mg Glucagon (Glucagen Diagnostic Kit) 0 mg IM STAT PRN; Protocol PRN Reason: Hypoglycemia Protocol Insulin Human Regular (Humulin R) 0 units SC ACHS [facility] PRN Reason: Protocol Last Admin: 09/25/17 06:29 Dose: Not Given Losartan Potassium (Cozaar) 100 mg PO DAILY [facility] Last Admin: 09/24/17 09:21 Dose: 100 mg Pantoprazole Sodium (Protonix Ec Tab) 40 mg PO DAILY [facility] Last Admin: 09/24/17 09:25 Dose: 40 mg Trazodone HCl (Desyrel) 50 mg PO [facility] Last Admin: 09/24/17 21:31 Dose: 50 mg Zolpidem Tartrate (Ambien) 10 mg PO [facility] Last Admin: 09/24/17 23:08 Dose: 10 mg - Labs Labs: 09/24/17 05:26 09/24/17 05:26 PT 10.4 Seconds (9.8-13.1) 09/22/17 21:30 INR 0.9 (0.9-1.2) 09/22/17 21:30 APTT 35.9 Seconds (25.6-37.1) 09/22/17 21:30 - Constitutional Appears: Well, Non-toxic, No Acute Distress - Head Exam Head Exam: ATRAUMATIC, NORMAL INSPECTION, NORMOCEPHALIC - Eye Exam Eye Exam: EOMI, Normal appearance, PERRL Pupil Exam: NORMAL ACCOMODATION, PERRL - ENT Exam ENT Exam: Mucous Membranes Moist, Normal Exam - Neck Exam Neck Exam: Full ROM, Normal Inspection - Respiratory Exam Respiratory Exam: Clear to Ausculation Bilateral, NORMAL BREATHING PATTERN - Cardiovascular Exam Cardiovascular Exam: REGULAR RHYTHM, +S1, +S2 - GI/Abdominal Exam GI & Abdominal Exam: Soft, Normal Bowel Sounds. absent: Tenderness - Extremities Exam Extremities Exam: Full ROM, Normal Capillary Refill, Normal Inspection - Back Exam Back Exam: NORMAL INSPECTION. absent: CVA tenderness (L), CVA tenderness (R) - Neurological Exam Neurological Exam: Alert, Awake, Oriented x3 - Psychiatric Exam Psychiatric exam: Normal Affect, Normal Mood - Skin Skin Exam: Dry, Intact, Normal Color, Warm Assessment and Plan - Assessment and Plan (Free Text) Assessment: Assessment: 70 yo fm with pMH of HTN, HLD, gastritis and NIDDM was admitted for with non- specific ekg changes, to evaluate for ACS. Chest pain No pain at the moment, no tenderness Evaluate for NSTMI First EKG sig for flattening of T waves in lead I and T wave inversion in lead aVL (when compared to ekg 09/28/16), rate of 77 Sec EKG NSR with bradycardia Trop x 1 neg Trop x2 is POSITIVE Trop x3 trending down but positive D-Dimer WNL Continue aspirin, atorvastatin, Clopidogrel, Levonox, losaratan, repeat EKG, Troponin Q8H Catheterization well be done today at [facility] as per Cardiology recommendation HTN Still elevated continue Home medication Cont to monitor NIDDM Insulin was not given well controlled last HbA1c 6.7 (07/2017 in ecw) Low dose insulin correction on hold hypoglycemia protocol Glipizide XL D/C Metformin CKD, stage IIIB Chronic Renal dose meds as needed Gastritis Continue Home PPI Insomnia Cont home meds DVT -Lovenox SC Full Code
[2017-09-25] MEDS: Pantoprazole 40 mg EC Tab PO SCH ×2 (09:05→22:56)
--- NOTE | 2017-09-25 10:00 | CARD ---
APPROVED REPORT Date of service: 09/24/2017 EXAM: Two-dimensional and M-mode echocardiogram with Doppler and color Doppler. Other Information Quality : GoodRhythm : NSR INDICATION Chest Pain 2D DIMENSIONS IVSd1.11 (0.7-1.1cm)LVDd4.36 (3.9-5.9cm) LVOT Diameter1.86 (1.8-2.4cm)PWd1.24 (0.7-1.1cm) IVSs1.25 (0.8-1.2cm)LVDs2.86 (2.5-4.0cm) FS (%) 34.4 %PWs1.21 (0.8-1.2cm) M-Mode DIMENSIONS Left Atrium (MM)4.62 (2.5-4.0cm)IVSd1.03 (0.7-1.1cm) Aortic Root2.59 (2.2-3.7cm)LVDd5.35 (4.0-5.6cm) Aortic Cusp Exc.1.76 (1.5-2.0cm)PWd1.09 (0.7-1.1cm) IVSs1.47 cmFS (%) 45 % LVDs2.97 (2.0-3.8cm)PWs1.62 cm Aortic Valve AoV Peak Insimkdq546.4cm/sAoV VTI35.5cmAO Peak GR.8mmHg LVOT Peak Jvvjarbh32.6cm/sLVOT VTI26.38cmAO Mean GR.4mmHg ELIEZER (VMAX)1.53lo6NOD (VTI)1.62sq5NC P 1/2 Icwh029ys Mitral Valve MV E Izbiggad58.4cm/sMV DECEL ZBET630lgMB A Zjwomlby09.9cm/s MV FPK50ulL/A ratio1.0MVA (PHT)4.52cm2 TDI Lateral E' Peak V6.36cm/sMedial E' Peak V6.03cm/sE/Lateral E'14.7 E/Medial E'15.5 Pulmonary Valve PV Peak Dmvblleo78.8cm/s Tricuspid Valve TR Peak Iidifubs699pa/sRAP GJPIRZAJ06ssHdLQ Peak Gr.28mmHg NTBF02nsBc LEFT VENTRICLE The left ventricle is normal size. There is borderline to mild concentric left ventricular hypertrophy. The left ventricular function is normal. The left ventricular ejection fraction is within the normal range. The Ejection Fraction is 60-65%. There is normal LV segmental wall motion. Transmitral Doppler flow pattern is Grade I-abnormal relaxation pattern. RIGHT VENTRICLE The right ventricle is normal size. There is normal right ventricular wall thickness. The right ventricular systolic function is normal. ATRIA The left atrium size is normal. The right atrium size is normal. The interatrial septum is intact with no evidence for an atrial septal defect. AORTIC VALVE The aortic valve is normal in structure. No aortic regurgitation is present. There is no aortic valvular stenosis. MITRAL VALVE The mitral valve is normal in structure. There is no evidence of mitral valve prolapse. There is no mitral valve stenosis. Mitral regurgitation is trace to mild. TRICUSPID VALVE The tricuspid valve is normal in structure. There is mild tricuspid regurgitation. PULMONIC VALVE The pulmonic valve is not well visualized. There is no pulmonic valvular regurgitation. GREAT VESSELS The aortic root is normal in size. The IVC is normal in size and collapses >50% with inspiration. PERICARDIAL EFFUSION The pericardium appears normal. <Conclusion> The left ventricular function is normal. The left ventricular ejection fraction is within the normal range. The Ejection Fraction is 60-65%. Transmitral Doppler flow pattern is Grade I-abnormal relaxation pattern. Mitral regurgitation is trace to mild. There is mild tricuspid regurgitation.
--- NOTE | 2017-09-26 06:31 | CP.PCM.PN ---
Subjective - Date & Time of Evaluation Date of Evaluation: 09/26/17 Time of Evaluation: 06:45 - Subjective Subjective: Pt is seen and examined at bed side. Pt slept comfortable, she have no complain. Pt had no fever, headache, SOB, chest pain, abd pain, diarrhea, constipation, polyuria, dysuria. Objective - Vital Signs/Intake and Output Vital Signs (last 24 hours): Temp Pulse Resp BP Pulse Ox 98.7 F 56 L 18 109/53 L 97 09/26/17 04:45 09/26/17 04:45 09/26/17 04:45 09/26/17 04:45 09/26/17 04:45 - Medications Medications: Current Medications Acetaminophen (Tylenol 325mg Tab) 650 mg PO Q6 PRN PRN Reason: Pain, Mild (1-3) Aspirin (Ecotrin) 81 mg PO DAILY [facility] Last Admin: 09/25/17 22:57 Dose: 81 mg Atorvastatin Calcium (Lipitor) 40 mg PO DAILY [facility] Last Admin: 09/25/17 22:57 Dose: 40 mg Clopidogrel Bisulfate (Plavix) 75 mg PO DAILY [facility] Last Admin: 09/25/17 22:57 Dose: 75 mg Cyanocobalamin (Vitamin B12 1000 Mcg Tab) 1,000 mcg PO DAILY [facility] Last Admin: 09/25/17 22:56 Dose: 1,000 mcg Dextrose (Dextrose 50% Inj) 0 ml IV STAT PRN; Protocol PRN Reason: Hypoglycemia Protocol Dextrose (Glutose 15) 0 gm PO ONCE PRN; Protocol PRN Reason: Hypoglycemia Protocol Ferrous Sulfate (Feosol) 325 mg PO DAILY [facility] Last Admin: 09/25/17 22:57 Dose: 325 mg Glipizide (Glucotrol Xl) 5 mg PO DAILY [facility] Last Admin: 09/23/17 08:24 Dose: 5 mg Glucagon (Glucagen Diagnostic Kit) 0 mg IM STAT PRN; Protocol PRN Reason: Hypoglycemia Protocol Insulin Human Regular (Humulin R) 0 units SC [facility] PRN Reason: Protocol Last Admin: 09/25/17 22:03 Dose: Not Given Losartan Potassium (Cozaar) 100 mg PO DAILY [facility] Last Admin: 09/25/17 22:59 Dose: 100 mg Pantoprazole Sodium (Protonix Ec Tab) 40 mg PO DAILY [facility] Last Admin: 09/25/17 22:56 Dose: 40 mg Trazodone HCl (Desyrel) 50 mg PO [facility] Last Admin: 09/25/17 22:02 Dose: 50 mg Zolpidem Tartrate (Ambien) 10 mg PO [facility] Last Admin: 09/25/17 22:01 Dose: 10 mg - Labs Labs: 09/24/17 05:26 09/24/17 05:26 PT 10.4 Seconds (9.8-13.1) 09/22/17 21:30 INR 0.9 (0.9-1.2) 09/22/17 21:30 APTT 35.9 Seconds (25.6-37.1) 09/22/17 21:30 - Constitutional Appears: Well, Non-toxic, No Acute Distress - Head Exam Head Exam: ATRAUMATIC, NORMAL INSPECTION, NORMOCEPHALIC - Eye Exam Eye Exam: EOMI, Normal appearance, PERRL Pupil Exam: NORMAL ACCOMODATION, PERRL - ENT Exam ENT Exam: Mucous Membranes Moist, Normal Exam - Neck Exam Neck Exam: Full ROM, Normal Inspection - Respiratory Exam Respiratory Exam: Clear to Ausculation Bilateral, NORMAL BREATHING PATTERN. absent: Decreased Breath Sounds, Prolonged Expiratory Phase, Rhonchi, Wheezes, Respiratory Distress - Cardiovascular Exam Cardiovascular Exam: REGULAR RHYTHM, +S1, +S2. absent: JVD, RRR, Rubs, +S4, Murmur - GI/Abdominal Exam GI & Abdominal Exam: Soft, Normal Bowel Sounds. absent: Rigid, Tenderness - Extremities Exam Extremities Exam: Full ROM, Normal Capillary Refill, Normal Inspection. absent : Calf Tenderness - Back Exam Back Exam: NORMAL INSPECTION. absent: CVA tenderness (L), CVA tenderness (R), Full ROM - Neurological Exam Neurological Exam: Alert, Awake, Oriented x3 - Psychiatric Exam Psychiatric exam: Normal Affect, Normal Mood - Skin Skin Exam: Dry, Intact, Normal Color, Warm Assessment and Plan - Assessment and Plan (Free Text) Assessment: - Assessment and Plan (Free Text) Assessment: Assessment: 70 yo fm with pMH of HTN, HLD, gastritis and NIDDM was admitted for CP with non- specific ekg changes, to evaluate for ACS. Chest pain No pain at the moment, no tenderness Evaluate for NSTMI First EKG sig for flattening of T waves in lead I and T wave inversion in lead aVL (when compared to ekg 09/28/16), rate of 77 Sec EKG NSR with bradycardia Trop x 1 neg Trop x2 is POSITIVE Trop x3 trending down but positive D-Dimer WNL Continue aspirin, atorvastatin, Clopidogrel, Levonox, losaratan, repeat EKG, Troponin Q8H Catheterization: 70% blockage at circumflex artery Stent will be done tomorrow at [facility] HTN improved continue Home medication Cont to monitor NIDDM Insulin is not given well controlled last HbA1c 6.7 (07/2017 in ecw) Low dose insulin correction on hold hypoglycemia protocol Glipizide XL D/C Metformin CKD, stage IIIB Chronic Renal dose meds as needed Gastritis Continue Home PPI Insomnia Cont home meds DVT -Lovenox SC Full Code
[2017-09-26] MEDS: Insulin Regular 100 units/ml SC SCH ×4 (06:48→21:48)
[2017-09-26] MEDS: Pantoprazole 40 mg EC Tab PO SCH (09:19)
--- NOTE | 2017-09-26 21:10 | PN ---
DATE: 09/26/2017 SUBJECTIVE: The patient denies any chest pain. No reported groin bleeding. PHYSICAL EXAMINATION: VITAL SIGNS: Blood pressure 123/61, heart rate 59, temperature 98.1, respirations 18. HEENT: Normocephalic. CHEST: Clear. HEART: S1 and S2, regular. ABDOMEN: Soft. EXTREMITIES: No edema. No hematoma. LABORATORY DATA: Today's blood sugars are 141 and 270. ASSESSMENT: 1. Consider [id number] myocardial function. 2. 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 3. Uncontrolled diabetes mellitus. 4. Hypertension. 5. Mild sinus bradycardia. RECOMMENDATIONS: Continue Cozaar 100 mg once a day, aspirin 81 mg once a day, Plavix 75 mg once a day, Lipitor mg once a day. The patient will be transferred tomorrow morning to [facility] for PCI to the circumflex artery region. The procedure and its risks were explained to the patient and her at the bedside. The patient understood and agreed for the procedure. Brandon Blandon MD
[2017-09-27 06:16] LABS: BASO # 0.1 K/uL (0.0-0.2); BASO % 0.7 % (0.0-2.0); EOS # 0.3 K/uL (0.0-0.7); EOS % 4.8 % (0.0-4.0); HEMOGLOBIN 10.2 g/dL (12.0-16.0); LYMPH # 1.8 K/uL (1.0-4.3); MEAN CELL VOLUME 85.4 fl (81.0-99.0); MEAN CORPUSCULAR HEMOGLOBIN 28.8 pg (27.0-31.0); MEAN CORPUSCULAR HGB CONC 33.7 g/dL (33.0-37.0); MEAN PLATELET VOLUME 8.7 fl (7.2-11.7); MONO # 0.6 K/uL (0.0-0.8); MONO % 8.9 % (0.0-10.0); NEUT # 4.2 K/uL (1.8-7.0); NEUT % 59.6 % (50.0-75.0); NRBC % 0.2 % (0.0-0.0); RBC 3.56 Mil/uL (3.80-5.20); RED CELL DISTRIBUTION WIDTH 14.4 % (11.5-14.5)
[2017-09-27 06:20] LABS: PROTHROMBIN TIME 11.6 Seconds (9.8-13.1)
[2017-09-27 06:49] LABS: CALCIUM 8.9 mg/dL (8.4-10.2)
--- NOTE | 2017-09-27 10:33 | CP.PCM.PN ---
Subjective - Date & Time of Evaluation Date of Evaluation: 09/27/17 Time of Evaluation: 06:40 - Subjective Subjective: Pt seen and examined by bed side. Had no acute event overnight. Pt slept comfortable. Pt is going to [facility] today for stent placement. Pt denies any complain, no fever, chest pain, sob, abd pain, diarrhea or any other symptoms. Objective - Vital Signs/Intake and Output Vital Signs (last 24 hours): Temp Pulse Resp BP Pulse Ox 97.9 F 56 L 16 144/54 L 99 09/27/17 05:00 09/27/17 05:00 09/27/17 05:00 09/27/17 05:00 09/27/17 05:00 - Medications Medications: Current Medications Acetaminophen (Tylenol 325mg Tab) 650 mg PO Q6 PRN PRN Reason: Pain, Mild (1-3) Aspirin (Ecotrin) 81 mg PO DAILY [facility] Last Admin: 09/26/17 09:19 Dose: 81 mg Atorvastatin Calcium (Lipitor) 40 mg PO DAILY [facility] Last Admin: 09/26/17 09:20 Dose: 40 mg Clopidogrel Bisulfate (Plavix) 75 mg PO DAILY [facility] Last Admin: 09/26/17 09:23 Dose: 75 mg Cyanocobalamin (Vitamin B12 1000 Mcg Tab) 1,000 mcg PO DAILY [facility] Last Admin: 09/26/17 09:21 Dose: 1,000 mcg Dextrose (Dextrose 50% Inj) 0 ml IV STAT PRN; Protocol PRN Reason: Hypoglycemia Protocol Dextrose (Glutose 15) 0 gm PO ONCE PRN; Protocol PRN Reason: Hypoglycemia Protocol Ferrous Sulfate (Feosol) 325 mg PO DAILY [facility] Last Admin: 09/26/17 09:20 Dose: 325 mg Glipizide (Glucotrol Xl) 5 mg PO DAILY [facility] Last Admin: 09/23/17 08:24 Dose: 5 mg Glucagon (Glucagen Diagnostic Kit) 0 mg IM STAT PRN; Protocol PRN Reason: Hypoglycemia Protocol Insulin Human Regular (Humulin R) 0 units SC [facility] PRN Reason: Protocol Last Admin: 09/26/17 21:48 Dose: Not Given Losartan Potassium (Cozaar) 100 mg PO DAILY [facility] Last Admin: 09/26/17 09:20 Dose: 100 mg Pantoprazole Sodium (Protonix Ec Tab) 40 mg PO DAILY [facility] Last Admin: 09/26/17 09:19 Dose: 40 mg Trazodone HCl (Desyrel) 50 mg PO [facility] Last Admin: 09/26/17 21:49 Dose: 50 mg Zolpidem Tartrate (Ambien) 10 mg PO [facility] Last Admin: 09/26/17 22:54 Dose: 10 mg - Labs Labs: 09/27/17 05:30 09/27/17 05:30 PT 11.6 Seconds (9.8-13.1) 09/27/17 05:30 INR 1.0 (0.9-1.2) 09/27/17 05:30 APTT 35.9 Seconds (25.6-37.1) 09/22/17 21:30 Assessment and Plan - Assessment and Plan (Free Text) Assessment: 70 yo fm with pMH of HTN, HLD, gastritis and NIDDM was admitted for CP with non- specific ekg changes, to evaluate for ACS. Chest pain No pain at the moment, no tenderness Evaluate for NSTMI First EKG sig for flattening of T waves in lead I and T wave inversion in lead aVL (when compared to ekg 09/28/16), rate of 77 Sec EKG NSR with bradycardia Trop x 1 neg Trop x2 is POSITIVE Trop x3 trending down but positive D-Dimer WNL Continue aspirin, atorvastatin, Clopidogrel, Levonox, losaratan, repeat EKG, Troponin Q8H Catheterization: 70% blockage at circumflex artery Pt was sent to [facility] for possible stent placement HTN improved continue Home medication Cont to monitor NIDDM Insulin is not given well controlled last HbA1c 6.7 (07/2017 in ecw) Low dose insulin correction on hold hypoglycemia protocol Glipizide XL CKD, stage IIIB Chronic Renal dose meds as needed Gastritis Continue Home PPI Insomnia Cont home meds DVT -Lovenox SC Full Code
[2017-09-27 16:50] VITALS: RESP 20; TEMP 98.1; O2SAT 98
[2017-09-27 18:56] VITALS: BP 131/66; PULSE 62
--- NOTE | 2017-09-28 07:03 | CP.PCM.DIS ---
Provider - Provider Date of Admission: 09/24/17 11:51 Attending physician: Katheryn Melchor MD Time Spent in preparation of Discharge (in minutes): 15 Hospital Course - Lab Results Lab Results: Most Recent Lab Values WBC 7.0 K/uL (4.8-10.8) 09/27/17 05:30 RBC 3.56 Mil/uL (3.80-5.20) L 09/27/17 05:30 Hgb 10.2 g/dL (12.0-16.0) L 09/27/17 05:30 Hct 30.4 % (34.0-47.0) L 09/27/17 05:30 MCV 85.4 fl (81.0-99.0) 09/27/17 05:30 MCH 28.8 pg (27.0-31.0) 09/27/17 05:30 MCHC 33.7 g/dL (33.0-37.0) 09/27/17 05:30 RDW 14.4 % (11.5-14.5) 09/27/17 05:30 Plt Count 211 K/uL (130-400) 09/27/17 05:30 MPV 8.7 fl (7.2-11.7) 09/27/17 05:30 Neut % (Auto) 59.6 % (50.0-75.0) 09/27/17 05:30 Lymph % (Auto) 26.0 % (20.0-40.0) 09/27/17 05:30 [place] % (Auto) 8.9 % (0.0-10.0) 09/27/17 05:30 Eos % (Auto) 4.8 % (0.0-4.0) H 09/27/17 05:30 Baso % (Auto) 0.7 % (0.0-2.0) 09/27/17 05:30 Neut # (Auto) 4.2 K/uL (1.8-7.0) 09/27/17 05:30 Lymph # (Auto) 1.8 K/uL (1.0-4.3) 09/27/17 05:30 [place] # (Auto) 0.6 K/uL (0.0-0.8) 09/27/17 05:30 Eos # (Auto) 0.3 K/uL (0.0-0.7) 09/27/17 05:30 Baso # (Auto) 0.1 K/uL (0.0-0.2) 09/27/17 05:30 PT 11.6 Seconds (9.8-13.1) 09/27/17 05:30 INR 1.0 (0.9-1.2) 09/27/17 05:30 APTT 35.9 Seconds (25.6-37.1) 09/22/17 21:30 D-Dimer, Quantitative 168 ng/mlDDU (0-230) 09/23/17 09:45 Sodium 142 mmol/l (132-148) 09/27/17 05:30 Potassium 4.7 MMOL/L (3.6-5.0) 09/27/17 05:30 Chloride 105 mmol/L (98-107) 09/27/17 05:30 Carbon Dioxide 26 mmol/L (22-30) 09/27/17 05:30 Anion Gap 16 (10-20) 09/27/17 05:30 BUN 29 mg/dl (7-17) H 09/27/17 05:30 Creatinine 1.2 mg/dl (0.7-1.2) 09/27/17 05:30 Est GFR ( Amer) 53 09/27/17 05:30 Est GFR (Non-Af Amer) 44 09/27/17 05:30 POC Glucose (mg/dL) 138 mg/dL (65-110) H 09/27/17 05:29 Random Glucose 129 mg/dL (65-105) H 09/27/17 05:30 Hemoglobin A1c 6.7 % (4.2-6.5) H 09/23/17 18:41 Calcium 8.9 mg/dL (8.4-10.2) 09/27/17 05:30 Troponin I 0.3490 ng/mL (0.00-0.120) H* 09/23/17 15:55 Hepatitis C Antibody Negative (NEGATIVE) 09/24/17 11:22 - Hospital Course Hospital Course: 72 yo female with PMH HTN, HLD, gastritis and NIDDM presents to [facility] ED for L chest pain. Pt was admitted for Evaluation of ACS. Cardiology was on the case, Pt was treated medically for ACS and was sent for cath, no occlusion was found. Pt have improved, no new complain, denies fever, chest pain, SOB, abdominal pain , diarrhea, constipation, dysuria or polyuria. Cardiology and Medical team approve pt is medically stable to be discharged and F/U with PCP in 1-2 week. Home medication: Asprin 81mg #30 tab Atrovastatin 40mg #30 tab VIt B12 1000mcg #30 tab Ferosul 325mg #30 tab Glipizipe SR 5mg #30 tab Cozaar 100mg #30 tab Discharge Exam - Head Exam Head Exam: ATRAUMATIC, NORMAL INSPECTION, NORMOCEPHALIC - Eye Exam Eye Exam: EOMI, Normal appearance, PERRL Pupil Exam: NORMAL ACCOMODATION, PERRL - Respiratory Exam Respiratory Exam: Clear to PA & Lateral, NORMAL BREATHING PATTERN, UNREMARKABLE - Cardiovascular Exam Cardiovascular Exam: REGULAR RHYTHM, +S1, +S2 - GI/Abdominal Exam GI & Abdominal Exam: Normal Bowel Sounds, Unremarkable. absent: Tenderness - Extremities Exam Extremities exam: full ROM - Back Exam Back exam: FULL ROM. absent: CVA tenderness (L), CVA tenderness (R) - Neurological Exam Neurological exam: Alert, Normal Gait, Oriented x3 - Psychiatric Exam Psychiatric exam: Normal Affect, Normal Mood - Skin Skin Exam: Dry, Intact, Normal Color, Warm Discharge Plan - Discharge Medications Prescriptions: Aspirin [Ecotrin] 81 mg PO DAILY #30 tabec Atorvastatin [Lipitor] 40 mg PO DAILY #30 tab Cyanocobalamin [Vitamin B12 1000 mcg Tab] 1,000 mcg PO DAILY #30 tab Ferrous Sulfate [Ferosul] 325 mg PO DAILY #30 tablet GlipiZIDE SR [Glucotrol XL] 5 mg PO DAILY #30 tab Losartan Potassium [Cozaar] 100 mg PO DAILY #30 tablet - Follow Up Plan Condition: GOOD Disposition: HOME/ ROUTINE Instructions: Chest Pain (DC), Acute Abdominal Pain (DC), Acute Abdominal Pain (GEN) Additional Instructions: 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 Referrals: [facility] [Outside] Brandon Blandon MD [Staff Provider] -
== END 2017-09-27 19:30 | disposition home or self-care (01) | DRG 282 ==
LOC: H.ER 20:46 → H.ERHOLD 22:19 → H.TEL 09-23 01:21 → OBSVTOIN 09-24 11:51
PROVIDERS: ADMIT Family Medicine Geriatric Medicine; ATTEND Family Medicine Geriatric Medicine
PROC: 4A023N7 Measurement of Cardiac Sampling and Pressure, Left Heart, Percutaneous Approach (ICD-10-PCS; principal; 2017-09-25)
PROC: B205YZZ Plain Radiography of Left Heart using Other Contrast (ICD-10-PCS; 2017-09-25)
PROC: 4A023N7 Measurement of Cardiac Sampling and Pressure, Left Heart, Percutaneous Approach (ICD-10-PCS; 2017-09-27)
PROC: B205YZZ Plain Radiography of Left Heart using Other Contrast (ICD-10-PCS; 2017-09-27)
DX: I21.4 Non-ST elevation (NSTEMI) myocardial infarction (principal); I27.20 Pulmonary hypertension, unspecified; I12.9 Hypertensive chronic kidney disease with stage 1 through stage 4 chronic kidney disease, or unspecified chronic kidney disease; N18.3 Chronic kidney disease, stage 3 (moderate); E11.65 Type 2 diabetes mellitus with hyperglycemia; E11.22 Type 2 diabetes mellitus with diabetic chronic kidney disease; R00.1 Bradycardia, unspecified; G89.29 Other chronic pain; E78.5 Hyperlipidemia, unspecified; F41.9 Anxiety disorder, unspecified; K29.70 Gastritis, unspecified, without bleeding; G47.00 Insomnia, unspecified; K59.00 Constipation, unspecified; Z79.82 Long term (current) use of aspirin; Z79.84 Long term (current) use of oral hypoglycemic drugs

== ENCOUNTER 2017-10-29 10:29 | Emergency (ER) | payer MEDICARE ==
[2017-10-29 10:42] VITALS: TEMP 98.5
[2017-10-29 10:43] VITALS: BMI 26.4
[2017-10-29 12:35] LABS: BASO % 0.7 % (0.0-2.0); EOS # 0.3 K/uL (0.0-0.7); EOS % 6.1 % (0.0-4.0); HEMOGLOBIN 9.5 g/dL (12.0-16.0); LYMPH # 1.4 K/uL (1.0-4.3); LYMPH % 25.7 % (20.0-40.0); MEAN CELL VOLUME 85.2 fl (81.0-99.0); MEAN CORPUSCULAR HEMOGLOBIN 27.9 pg (27.0-31.0); MEAN CORPUSCULAR HGB CONC 32.7 g/dL (33.0-37.0); MEAN PLATELET VOLUME 7.6 fl (7.2-11.7); MONO # 0.5 K/uL (0.0-0.8); MONO % 9.2 % (0.0-10.0); NEUT # 3.2 K/uL (1.8-7.0); NEUT % 58.3 % (50.0-75.0); NRBC % 0.1 % (0.0-0.0); RBC 3.41 Mil/uL (3.80-5.20); RED CELL DISTRIBUTION WIDTH 14.5 % (11.5-14.5); WHITE BLOOD COUNT 5.5 K/uL (4.8-10.8)
[2017-10-29 12:49] LABS: PROTHROMBIN TIME 11.3 Seconds (9.8-13.1)
[2017-10-29 12:52] LABS: PARTIAL THROMBOPLASTIN TIME 34.7 Seconds (25.6-37.1)
--- NOTE | 2017-10-29 13:05 | RAD ---
Date of service: 10/29/2017 HISTORY: dizziness, hx CAD COMPARISON: No prior. TECHNIQUE: Chest PA and lateral FINDINGS: LUNGS: No active pulmonary disease. PLEURA: No significant pleural effusion identified. No pneumothorax apparent. CARDIOVASCULAR: Normal. OSSEOUS STRUCTURES: Scoliotic thoracic spinal deformity reiterated. VISUALIZED UPPER ABDOMEN: Normal. OTHER FINDINGS: Calcific density at the right mediastinum or neck soft tissues at the right parasagittal thoracic inlet reiterated. IMPRESSION: No interval acute cardiopulmonary disease appreciated.
--- NOTE | 2017-10-29 13:37 | ED PDOC ---
HPI: Headache Time Seen by Provider: 10/29/17 11:05 Chief Complaint (Nursing): Dizziness/Lightheaded Chief Complaint (Provider): dizziness and lightheadedness History Per: Patient, Family (daughter) History/Exam Limitations: no limitations Onset/Duration Of Symptoms: Hrs (this morning), Intermittent Episodes Current Symptoms Are (Timing): Still Present Additional Complaint(s): Tabatha Grissom is a 72 year old female, with a past medical history of HTN, Diabetes type II and hypercholesterolemia, who was brought to the emergency department by daughter for evaluation of intermittent dizziness and lightheadedness onset since waking up this morning associated with mild headache and neck pain. Patient describes her dizziness as room spinning especially when she sits up. Patient does have a history of vertigo but daughter at bedside states she has not had any issues over x5 years. She took no medications prior to arrival. Of note, approximately x1 month ago patient had a diagnosis of cardiac catheterization which required no stent placement. Patient also reports she does have a history of bradycardia. She denies any fever, chills, visual changes, weakness, numbness, nausea, vomit, cough, shortness of breath, chest pain, abdominal pain, falls or trauma. PMD: Dr. Bales Past Medical History Reviewed: Historical Data, Nursing Documentation, Vital Signs Vital Signs: Last Vital Signs Temp 98.5 F 10/29/17 10:41 Pulse 54 L 10/29/17 10:41 Resp 20 10/29/17 10:41 BP 151/68 H 10/29/17 10:41 Pulse Ox 99 10/29/17 10:41 - Medical History PMH: Depression, Diabetes (Type II), Gastritis, HTN, Hypercholesterolemia, Hyperlipidemia - Surgical History Other surgeries: cardiac catheterization, cyst removal b/l breast and tubal ligation - Family History Family History: States: Diabetes, Hypertension - Social History Current smoker - smoking cessation education provided: No Alcohol: None Drugs: Denies - Home Medications Home Medications: Ambulatory Orders Medication Instructions Recorded Zolpidem Tartrate [Ambien] 10 mg PO HS 04/20/16 Garfield-3 Fatty Acids [Garfield-3] 1 gm PO BID 06/19/16 traZODone [Desyrel] 50 mg PO HS 06/19/16 Ondansetron [Zofran Odt] 4 mg PO ASDIR PRN #10 odt 09/27/16 Pantoprazole [Protonix EC Tab] 40 mg PO DAILY #30 tab 09/27/16 Acetaminophen with Codeine 1 tab PO Q6H PRN #10 tab 01/04/17 [Tylenol with Codeine #3 Tablet] Aspirin [Ecotrin] 81 mg PO DAILY #30 tabec 09/27/17 Atorvastatin [Lipitor] 40 mg PO DAILY #30 tab 09/27/17 Cyanocobalamin [Vitamin B12 1000 1,000 mcg PO DAILY #30 tab 09/27/17 mcg Tab] Ferrous Sulfate [Ferosul] 325 mg PO DAILY #30 tablet 09/27/17 GlipiZIDE SR [Glucotrol XL] 5 mg PO DAILY #30 tab 09/27/17 Losartan Potassium [Cozaar] 100 mg PO DAILY #30 tablet 09/27/17 Meclizine [Meclizine*] 25 mg PO Q6 PRN #12 tab 10/29/17 - Allergies Allergies/Adverse Reactions: Allergies Allergy/AdvReac Type Severity Reaction Status Date / Time No Known Allergies Allergy Verified 10/11/17 13:38 Review of Systems ROS Statement: Except As Marked, All Systems Reviewed And Found Negative Constitutional: Negative for: Fever, Chills Eyes: Negative for: Vision Change Cardiovascular: Positive for: Light Headedness. Negative for: Chest Pain Respiratory: Negative for: Cough, Shortness of Breath Gastrointestinal: Negative for: Nausea, Vomiting, Abdominal Pain Musculoskeletal: Positive for: Neck Pain Neurological: Positive for: Headache (mild), Dizziness. Negative for: Weakness , Numbness Physical Exam - Reviewed Nursing Documentation Reviewed: Yes Vital Signs Reviewed: Yes - Physical Exam Comments: GENERALIZED APPEARANCE:Patient is awake, alert, oriented x3 in no acute distress. Resting comfortably SKIN: Warm, dry; (-) cyanosis. HEAD: (-) scalp swelling or tenderness. EYES: (-) conjunctival pallor. ENMT: Mucous membranes dry. NECK: (-) tenderness, (-) stiffness, (-) lymphadenopathy. CHEST AND RESPIRATORY: (-) rales, (-) rhonchi, (-) wheezes; breath sounds equal bilaterally. HEART AND CARDIOVASCULAR: (-) irregularity; (-) murmur, (-) gallop. ABDOMEN AND GI: Soft; (-) distention, (-) tenderness, (-) rebound, (-) guarding , (-) palpable masses, (-) flank tenderness. EXTREMITIES: (-) deformity; (-) edema. Distal pulses: present. NEURO AND PSYCH: Mental status as above. project planner: (-) nystagmus; Pupils EOMI, (-) facial asymmetry; (-) dysarthria; tongue and uvula midline. Strength symmetric. Gait: normal. - Laboratory Results Result Diagrams: 10/29/17 12:20 10/29/17 11:50 - ECG O2 Sat by Pulse Oximetry: 99 (RA) Pulse Ox Interpretation: Normal Medical Decision Making Medical Decision Making: Time: 11:05 Initial Impression: Dizziness and headache Initial Plan: --Head w/o contrast [CT] --EKG --CMP --Troponin I --Urine dipstick --CBC w/ differential --PTT --PT --Chest two views (PA/LAT) [RAD] --Antivert 25 mg PO --Reglan 10 mg IVP --Reevaluation EKG: Sinus samuel @ 51bpm, no ST elevation, no ectopy. QTc 440 1155 Accucheck: 152 1245 CBC and coag profile grossly unremarkable. Pending CMP and CT read. 1405 Date of service: 10/29/2017 PROCEDURE: CT HEAD WITHOUT CONTRAST. HISTORY: Dizziness COMPARISON: None available. TECHNIQUE: Axial computed tomography images were obtained through the head/brain without intravenous contrast. Radiation dose: Total exam DLP = 812.94 mGy-cm. This CT exam was performed using one or more of the following dose reduction techniques: Automated exposure control, adjustment of the mA and/or kV according to patient size, and/or use of iterative reconstruction technique. FINDINGS: HEMORRHAGE: No intracranial hemorrhage. BRAIN: Minor chronic periventricular white matter ischemic changes. Note that the possibility of a small hyperacute infarct cannot be excluded. Mild generalized volume loss. VENTRICLES: No obstructive hydrocephalus. CALVARIUM: Calvarium intact. Scalp calcifications are present ; rule out underlying diabetes. PARANASAL SINUSES: Unremarkable as visualized. No significant inflammatory changes. MASTOID AIR CELLS: Unremarkable as visualized. No inflammatory changes. OTHER FINDINGS: None. IMPRESSION: No acute intracranial hemorrhage. Minor chronic periventricular white matter ischemic changes. Note that the possibility of a small hyperacute infarct cannot be excluded Mild generalized volume loss. CMP reviewed and grossly unremarkable. Troponin < 0.05 1430 Patient reports slight, persistent dizziness at this time. Daughter at bedside states patient has not eaten all day and is unsure if that is contributing to current symptoms. Requesting a food tray at this time. 1530 Patient tolerating PO intake at this time. On re-evaluation, patient reports complete resolution of symptoms at this time. Patient ambulatory in ED with a steady, unassisted gait. Patient remains AAOx3, in no acute distress. Lungs clear to auscultation, cardiac RRR, abdomen soft, non-tender, repeat neuro exam shows no focal findings. VSS, stable for discharge. Lab/Diagnostic results d/w the patient in great detail. Diagnosis of dizziness, to consider vertigo d/w the patient and daughter at bedside. Based on history, exam and diagnostic results, plan will be for outpatient follow up. Patient instructed to follow-up with pmd / referral provided / the clinic in 1- 2 days without fail. Advised to take medication as prescribed. Return to the emergency room at any time for any new or worsening symptoms. Patient states she fully agrees with and understands discharge instructions. States that she agrees with the plan and disposition. Verbalized and repeated discharge instructions and plan. I have given the patient opportunity to ask any additional questions. ----- Scribe Attestation: Documented by Shamar Crum, acting as a scribe for Delisa Colindres PA-C. Provider Scribe Attestation: All medical record entries made by the Scribe were at my direction and personally dictated by me. I have reviewed the chart and agree that the record accurately reflects my personal performance of the history, physical exam, medical decision making, and the department course for this patient. I have also personally directed, reviewed, and agree with the discharge instructions and disposition. Disposition - Clinical Impression Clinical Impression: Dizziness - Patient ED Disposition Is Patient to be Admitted: No Counseled Patient/Family Regarding: Studies Performed, Diagnosis, Need For Followup, Rx Given - Disposition Referrals: Lynda Bales MD [Family Provider] - Adis Abdi MD [Medical Doctor] - Disposition: Routine/Home Disposition Time: 15:36 Condition: STABLE Additional Instructions: La atencin mdica de emergencia que recibi hoy se dirigi a los sntomas agudos de presentacin. Si le prescribieron algn medicamento, por favor ll shalom y d joy indicado. Amaris sntomas pueden tardar varios lee en resolverse. Regrese al Departamento de Emergencia en cualquier momento si los sntomas empeoran, no mejoran o si surge algn otro problema. Comunquese con nguyễn mdico en 2 lee para zhanna reevaluacin y seguimiento / o llame a barbra de los mdicos / clnicas a los que lala referido y que figura en el formulario de Informacin de visitas del paciente que se incluye en nguyễn paquete de floyd. Lleve todos los documentos que recibi al momento del floyd junto con los medicamentos a nguyễn visita de seguimiento. Nuestro tratamiento no puede reemplazar la atencin mdica en curso por parte de un proveedor de atencin primaria (PCP) fuera del departamento de emergencias. Prescriptions: Meclizine [Meclizine*] 25 mg PO Q6 PRN #12 tab PRN Reason: Dizziness Instructions: Vertigo (a Type of Dizziness), Dizziness, Nonvertigo, (DC) Forms: [employer] ([place]an) Print Language: FIJIAN - POA Present On Arrival: None Results - Lab Results Lab Results: 10/29/17 10/29/17 10/29/17 12:20 12:20 11:50 WBC 5.5 RBC 3.41 L Hgb 9.5 L Hct 29.0 L MCV 85.2 MCH 27.9 MCHC 32.7 L RDW 14.5 Plt Count 291 MPV 7.6 Neut % (Auto) 58.3 Lymph % (Auto) 25.7 [place] % (Auto) 9.2 Eos % (Auto) 6.1 H Baso % (Auto) 0.7 Neut # (Auto) 3.2 Lymph # (Auto) 1.4 [place] # (Auto) 0.5 Eos # (Auto) 0.3 Baso # (Auto) 0.0 PT 11.3 INR 1.0 APTT 34.7 Sodium 141 Potassium 4.6 Chloride 107 Carbon Dioxide 24 Anion Gap 15 BUN 22 H Creatinine 1.1 Est GFR ( Amer) 59 Est GFR (Non-Af Amer) 49 POC Glucose (mg/dL) Random Glucose 143 H Calcium 9.6 Total Bilirubin 0.3 AST 34 ALT 24 Alkaline Phosphatase 68 Troponin I 0.0520 Total Protein 7.4 Albumin 4.1 Globulin 3.4 Albumin/Globulin Ratio 1.2 10/29/17 11:31 WBC RBC Hgb Hct MCV MCH MCHC RDW Plt Count MPV Neut % (Auto) Lymph % (Auto) [place] % (Auto) Eos % (Auto) Baso % (Auto) Neut # (Auto) Lymph # (Auto) [place] # (Auto) Eos # (Auto) Baso # (Auto) PT INR APTT Sodium Potassium Chloride Carbon Dioxide Anion Gap BUN Creatinine Est GFR ( Amer) Est GFR (Non-Af Amer) POC Glucose (mg/dL) 152 H Random Glucose Calcium Total Bilirubin AST ALT Alkaline Phosphatase Troponin I Total Protein Albumin Globulin Albumin/Globulin Ratio
--- NOTE | 2017-10-29 13:40 | CT ---
Date of service: 10/29/2017 PROCEDURE: CT HEAD WITHOUT CONTRAST. HISTORY: Dizziness COMPARISON: None available. TECHNIQUE: Axial computed tomography images were obtained through the head/brain without intravenous contrast. Radiation dose: Total exam DLP = 812.94 mGy-cm. This CT exam was performed using one or more of the following dose reduction techniques: Automated exposure control, adjustment of the mA and/or kV according to patient size, and/or use of iterative reconstruction technique. FINDINGS: HEMORRHAGE: No intracranial hemorrhage. BRAIN: Minor chronic periventricular white matter ischemic changes. Note that the possibility of a small hyperacute infarct cannot be excluded. Mild generalized volume loss. VENTRICLES: No obstructive hydrocephalus. CALVARIUM: Calvarium intact. Scalp calcifications are present ; rule out underlying diabetes. PARANASAL SINUSES: Unremarkable as visualized. No significant inflammatory changes. MASTOID AIR CELLS: Unremarkable as visualized. No inflammatory changes. OTHER FINDINGS: None. IMPRESSION: No acute intracranial hemorrhage. Minor chronic periventricular white matter ischemic changes. Note that the possibility of a small hyperacute infarct cannot be excluded Mild generalized volume loss.
[2017-10-29 13:52] LABS: ALB/GLOB RATIO 1.2 (1.0-2.1); ALBUMIN 4.1 g/dL (3.5-5.0); CALCIUM 9.6 mg/dL (8.4-10.2)
[2017-10-29 14:03] LABS: TROPONIN I 0.052 ng/mL (0.00-0.120)
[2017-10-29 16:35] VITALS: BP 125/80; PULSE 75; RESP 16; O2SAT 100
--- NOTE | 2017-10-29 18:11 | CARD ---
APPROVED REPORT Date of service: 10/29/2017 <Conclusion> Sinus bradycardia Otherwise normal ECG
== END 2017-10-29 16:35 | disposition home or self-care (01) ==
LOC: H.ER 10:29
DX: R42 Dizziness and giddiness (principal); E11.9 Type 2 diabetes mellitus without complications; I10 Essential (primary) hypertension; I25.10 Atherosclerotic heart disease of native coronary artery without angina pectoris; Z79.82 Long term (current) use of aspirin; Z79.84 Long term (current) use of oral hypoglycemic drugs; Z86.59 Personal history of other mental and behavioral disorders; E78.00 Pure hypercholesterolemia, unspecified
CPT/HCPCS: 70450; 71046; 80053; 82948; 84484; 85025; 85610; 85730; 93005; 96374; 99284; J2765